=== PATIENT | female | born 1965 | race Caucasian/White ===

== ENCOUNTER 2017-09-11 07:37 | Outpatient (CLI) | payer BC ==
--- NOTE | 2017-09-11 09:10 | CT ---
CT OF ABDOMEN AND PELVIS PERFORMED WITH AND WITHOUT CONTRAST ENHANCEMENT: History: Hematuria, history of cervical cancer. FINDINGS: The lung bases are clear. There are diffuse fatty changes of the liver. The spleen is within normal limits of size. Pancreas an d gallbladder regions are unremarkable. Right and left adrenal glands and right and left kidneys are normal in size. There is no evidence of any renal cyst or mass. There is mild dilatation of both collecting systems and dilatation of both ur eters to the ureterovesical junction. I do not see any signs of any obstructing calculus. The uterus has been removed. There are no signs of pelvic lymphadenopathy or mass. IMPRESSION: 1. Mild bilateral hydronephrosis and hydroureter without evidence of any obstructing calculus or any definitive bladder mass. 2. Fatty changes of the liver. POS: NOA
[2017-09-11] MEDS ORDERED: Iopamidol 370 76% 100 ML VIAL ONE (09:59)
== END 2017-09-11 07:38 | disposition home or self-care (01) ==
LOC: CT 07:37
PROVIDERS: ATTEND Urology
DX: R31.0 Gross hematuria (principal); N13.30 Unspecified hydronephrosis; K76.0 Fatty (change of) liver, not elsewhere classified
CPT/HCPCS: 74178

== ENCOUNTER 2017-11-01 07:32 | Outpatient (CLI) | payer BC, OTHER ==
--- NOTE | 2017-11-01 15:31 | NM ---
LASIX RENOGRAM: DATE: 11/01/17. HISTORY: Hydronephrosis. History of cervical cancer, hematuria. RADIOPHARMACEUTICAL: 8 mCi Technetium 99m labeled MAG-3 IV. MEDICATIONS: 40 mg of Lasix intravenously administered 15 minutes prior to imaging. FINDINGS: There does appear to be symmetric uptake of activity within the kidneys bilaterally with time to peak activity delayed on the right compared to the left. The time of maximum activity within the left ki dney is 3.4 minutes and on the right is 6.4 minutes. T-1/2 on the left is 11.6 minutes and on the ri ght is 27.4 minutes. There is normal washout seen within the left kidney and while there is delayed washout in the right k idney, there is washout present. Split renal function is 59% on the left and 41% on the right. There is activity seen within each ure ter on provided images. There is greater activity present within the right renal collecting system c ompared to the left. IMPRESSION: 1. No evidence of a high-grade obstruction. There is delayed excretion of radiotracer from the righ t renal collecting system compared to the left with more normal washout curve seen involving the left kidney. 2. Split renal function is 59% on the left and 41% on the right. POS: [facility] [place]
[2017-11-01] MEDS ORDERED: Furosemide 40 MG/4 ML VIAL ONE (18:27)
== END 2017-11-01 07:33 | disposition home or self-care (01) ==
LOC: NM 07:32
PROVIDERS: ATTEND Urology
DX: N13.39 Other hydronephrosis (principal)
CPT/HCPCS: 78708; A4641; A9562; J1940

== ENCOUNTER 2018-11-04 14:26 | Outpatient (CLI) | payer BC ==
--- NOTE | 2018-11-04 15:40 | ULT ---
RENAL ULTRASOUND: DATE: 11/04/2018. PROVIDED CLINICAL HISTORY: Hematuria. FINDINGS: The right kidney measures about 11.5 x 6 x 5.7 cm and demonstrates prominent pelvocaliectasis. No ev idence for a mass. The left kidney measures about 11.8 x 7.7 x 7.2 cm and demonstrates no evidence for hydronephrosis or mass. Shadowing echogenic focus involving the mid left kidney may reflect artifact given that no ca lculus was seen on the CT examination performed previously. The urinary bladder is decompressed and not well evaluated. IMPRESSION: Right-sided pelvocaliectasis. POS: OFF
== END 2018-11-04 14:27 | disposition home or self-care (01) ==
LOC: BICULT 14:26
PROVIDERS: ATTEND Urology
DX: R31.0 Gross hematuria (principal); N28.89 Other specified disorders of kidney and ureter
CPT/HCPCS: 36415; 76770; 80048; 81001

== ENCOUNTER 2019-11-27 08:33 | Outpatient (CLI) | payer BC ==
--- NOTE | 2019-11-27 09:15 | ULT ---
Exam: Bilateral renal ultrasound HISTORY: Hydronephrosis COMPARISON: 11/04/2018 FINDINGS: Right kidney: Normal cortical echotexture. Persistent dilatation of the calyces and renal pelvis Right kidney measurements: 5.8 x 12.3 x 5.3 cm. Left kidney: Normal cortical echotexture. No hydronephrosis Left kidney measurements 5.9 x 12.3 x 6.2 cm. Urinary bladder: Prevoid volume 110 mL. Post void volume 4.3 mm. Normal mucosa. Left ureteral jet is identified. Right ureteral jet is not appreciated. IMPRESSION: 1. Moderate right-sided hydronephrosis which persists after voiding.
== END 2019-11-27 08:34 | disposition home or self-care (01) ==
LOC: BICULT 08:33
PROVIDERS: ATTEND Urology
DX: N13.39 Other hydronephrosis (principal)
CPT/HCPCS: 76770

== ENCOUNTER 2019-12-14 08:14 | Outpatient (CLI) | payer BC ==
[2019-12-14] MEDS ORDERED: Furosemide 40 MG/4 ML VIAL ONE (08:52)
--- NOTE | 2019-12-14 16:13 | NM ---
Radionucleotide renogram HISTORY: Hydronephrosis. COMPARISON: 11/01/2017. FINDINGS: Blood flow images show immediate bilateral and symmetric uptake. Delayed images show signif icant asymmetry, with delayed and persistent uptake of the left kidney and collecting structures. Split function: Left 62%: Right 38% Time to maximum: Left 3.4 minutes: Right 7.4 minutes T half max: left 10.0 minutes: Right 48.2 minutes Normalized GFR 233 mL/m. IMPRESSION : While total GFR is preserved, there is worsening function and delayed excretion of the right kidney c ompared to the left.
== END 2019-12-14 08:15 | disposition home or self-care (01) ==
LOC: NM 08:14
PROVIDERS: ATTEND Urology
DX: N13.39 Other hydronephrosis (principal); N28.89 Other specified disorders of kidney and ureter
CPT/HCPCS: 78708; A4641; A9562; J1940

== ENCOUNTER 2020-04-21 15:25 | Outpatient (CLI) | payer BC ==
--- NOTE | 2020-04-21 16:48 | ULT ---
BILATERAL RENAL ULTRASOUND COMPLETE: Date: 04/21/2020 HISTORY: Follow-up hydronephrosis. COMPARISON: 11/27/2019. FINDINGS: Right kidney measures 12.4 x 6.3 x 6.1 cm. Left kidney measures 11.9 x 5.5 x 6.0 cm. Moderate right-sided hydronephrosis persists. No significant change from prior exam. Pre-void bladder volume is 137 mL. Post-void bladder volume is 29 mL. IMPRESSION: Persistent moderate stable right-sided hydronephrosis from 11/27/2019. POS: OFF
== END 2020-04-21 15:26 | disposition home or self-care (01) ==
LOC: BICULT 15:25
PROVIDERS: ATTEND Urology
DX: N13.39 Other hydronephrosis (principal)
CPT/HCPCS: 76770

== ENCOUNTER 2020-08-26 09:36 | Outpatient (CLI) | payer BC ==
--- NOTE | 2020-08-26 10:50 | RAD ---
2 VIEWS RIGHT HIP: Date: 08/26/2020 COMPARISON: None. HISTORY: Bilateral hip pain. FINDINGS: Two views of the right hip show no evidence of acute fracture or dislocation. No degenerative changes are seen. Surgical clips are seen in the pelvis. IMPRESSION: No significant right hip abnormality. POS: EAA
--- NOTE | 2020-08-26 10:50 | RAD ---
2 VIEWS LEFT HIP: Date: 08/26/2020 HISTORY: Bilateral hip pain. FINDINGS: Two views of the left hip show no evidence of acute fracture or dislocation. No degenerative changes are seen. Surgical clips are seen in the pelvis. No focal soft tissue swelling is seen. IMPRESSION: No significant left hip abnormality. POS: EAA
[2020-08-26 16:23] LABS: ALT (SGPT) 14 U/L (8-55); AST (SGOT) 15 U/L (5-34); Albumin 4.2 g/dL (3.5-5.0); Alkaline Phosphatase 75 U/L (40-110); Anion Gap 14 mmol/L (10-20); BUN (Urea Nitrogen) 20 mg/dL (9.8-20.1); Bilirubin, Total 0.4 mg/dL (0.2-1.2); Calc. Creatinine Clearance 0 mL/min (70-130); Calcium 9.2 mg/dL (7.8-10.44); Carbon Dioxide 25 mmol/L (22-29); Chloride 108 mmol/L (98-107); Cholesterol 246 mg/dl (< 200 Desired); Globulin 2.7 g/dL (2.4-3.5); Glucose 92 mg/dL (70-105); HDL Cholesterol 49 mg/dL (>60 Neg Risk); LDL Cholesterol, Calculated 143 mg/dL; Potassium 4.3 mmol/L (3.5-5.1); Protein, Total 6.9 g/dL (6.0-8.3); Sodium 143 mmol/L (136-145); Triglycerides 268 mg/dL (Less than 150)
== END 2020-08-26 09:37 | disposition home or self-care (01) ==
LOC: SCSRAD 09:36
PROVIDERS: ATTEND Family Medicine
DX: M25.551 Pain in right hip (principal); M25.552 Pain in left hip; E78.5 Hyperlipidemia, unspecified
CPT/HCPCS: 36415; 80053; 80061

== ENCOUNTER 2021-03-01 15:23 | Outpatient (CLI) | payer BC ==
[2021-03-01 17:34] LABS: Hemoglobin 12.3 g/dL (12.0-15.5); Mean Corpuscular HGB CONC 31.6 g/dL (32.0-36.0); Mean Corpuscular Hemoglobin 27.8 pg (27.0-33.0); Mean Corpuscular Volume 87.8 fl (81.6-98.3); Mean Platelet Volume 9.7 fl (7.4-10.4); Platelet Count 325 10x3/uL (150-450); Red Blood Cell (RBC) Count 4.43 10x6/uL (3.90-5.03); White Blood Cell (WBC) Count 6.8 10x3/uL (3.5-10.5)
[2021-03-01 17:42] LABS: Anion Gap 16 mmol/L (10-20); BUN (Urea Nitrogen) 16 mg/dL (9.8-20.1); Calc. Creatinine Clearance 0 mL/min (70-130); Calcium 9.9 mg/dL (7.8-10.44); Carbon Dioxide 19 mmol/L (22-29); Chloride 108 mmol/L (98-107); Glucose 100 mg/dL (70-105); INR-International Normal Ratio 0.9; PTT 25.6 sec (22.0-33.0); Potassium 4.1 mmol/L (3.5-5.1); Prothrombin Time 10.1 sec (9.5-12.1); Sodium 139 mmol/L (136-145)
[2021-03-02 12:34] LABS: SARS-CoV-2 PCR by NAA Not Detected (NotDetected)
== END 2021-03-01 15:24 | disposition home or self-care (01) ==
LOC: LABBT 15:23
PROVIDERS: ATTEND Internal Medicine Cardiovascular Disease
DX: Z01.812 Encounter for preprocedural laboratory examination (principal); Z20.822 Contact with and (suspected) exposure to COVID-19
CPT/HCPCS: 80048; 85027; 85610; 85730; U0003; U0005

== ENCOUNTER → 2021-03-06 | Day surgery (SDC) | payer BC ==
[2021-03-03 12:57] VITALS: BMI 39.0
[~2021-03-06] MED LIST: Fentanyl 100 MCG/2 ML VIAL ONE; Heparin 10,000 UNITS/ 10 ML VIAL ONE; Heparin 25,000 units/D5W 0 ML ONE; Isoproterenol 0.2 MG/1 ML AMP ONE; Lidocaine 1% PF 5 ML VIAL ONE; Midazolam HCl 2 mg/2 ml Vial ONE; Ondansetron PF 4 MG/2 ML Vial ONE; Propofol 500 MG/50 ML VIAL ONE
== END ==
LOC: CCL 07:49
PROVIDERS: ATTEND Internal Medicine Cardiovascular Disease
PROC: 4A023FZ Measurement of Cardiac Rhythm, Percutaneous Approach (ICD-10-PCS; principal; 2021-03-06)
PROC: 5A2204Z Restoration of Cardiac Rhythm, Single (ICD-10-PCS; principal; 2021-03-06)
PROC: 02K83ZZ Map Conduction Mechanism, Percutaneous Approach (ICD-10-PCS; principal; 2021-03-06)
PROC: 4A0234Z Measurement of Cardiac Electrical Activity, Percutaneous Approach (ICD-10-PCS; principal; 2021-03-06)
DX: I47.1 Supraventricular tachycardia (principal); I48.91 Unspecified atrial fibrillation; I48.4 Atypical atrial flutter; I11.9 Hypertensive heart disease without heart failure; M19.90 Unspecified osteoarthritis, unspecified site; I08.1 Rheumatic disorders of both mitral and tricuspid valves; E66.01 Morbid (severe) obesity due to excess calories; Z68.39 Body mass index [BMI] 39.0-39.9, adult; Z79.899 Other long term (current) drug therapy; Z88.1 Allergy status to other antibiotic agents; Z88.2 Allergy status to sulfonamides
CPT/HCPCS: 71045; 76942; 92960; 93005; 93010; 93613; 93620; 93621; 93623; C1730; C1732; J1644; J2250; J2405; J2704; J3010

== ENCOUNTER 2021-08-30 17:50 | Outpatient (CLI) | payer BC | END 2021-08-30 17:51 | disposition home or self-care (01) | LOC: SCSRAD 17:50 | PROVIDERS: ATTEND Family Medicine | DX: R07.9 Chest pain, unspecified (principal) | CPT/HCPCS: 71046 ==

== ENCOUNTER 2022-03-05 07:41 | Outpatient (CLI) | payer BC | END 2022-03-05 07:42 | disposition home or self-care (01) | LOC: BICMAMMO 07:41 | PROVIDERS: ATTEND Family Medicine | DX: Z12.31 Encounter for screening mammogram for malignant neoplasm of breast (principal); Z80.3 Family history of malignant neoplasm of breast; Z85.41 Personal history of malignant neoplasm of cervix uteri | CPT/HCPCS: 77063; 77067 ==

== ENCOUNTER 2023-02-05 08:00 | Outpatient (CLI) | payer BC | END 2023-02-05 08:01 | disposition home or self-care (01) | LOC: PET 08:00 | PROVIDERS: ATTEND Internal Medicine | DX: R19.00 Intra-abdominal and pelvic swelling, mass and lump, unspecified site (principal); C80.1 Malignant (primary) neoplasm, unspecified; C78.6 Secondary malignant neoplasm of retroperitoneum and peritoneum | CPT/HCPCS: 78815; A9552 ==

== ENCOUNTER → 2023-03-06 | Day surgery (SDC) | payer BC ==
[~2023-03-06] MED LIST changes: -Fentanyl 100 MCG/2 ML VIAL ONE; -Heparin 10,000 UNITS/ 10 ML VIAL ONE; -Heparin 25,000 units/D5W 0 ML ONE; -Isoproterenol 0.2 MG/1 ML AMP ONE; -Lidocaine 1% PF 5 ML VIAL ONE; -Midazolam HCl 2 mg/2 ml Vial ONE; -Ondansetron PF 4 MG/2 ML Vial ONE; -Propofol 500 MG/50 ML VIAL ONE; +cefTRIAXone\\ROCEPHIN 1 GM in Sodium Chloride 0.9% 100 ML IVPB SCH
[2023-03-06 08:04] LABS: Hematocrit 41.4 % (36.0-47.0); Hemoglobin 13.3 g/dL (12.0-16.0); Mean Corpuscular HGB CONC 32.1 g/dL (32.0-36.0); Mean Corpuscular Hemoglobin 26.9 pg (27.0-31.0); Mean Corpuscular Volume 83.6 fl (78.0-98.0); Mean Platelet Volume 9.4 fL (7.4-10.4); Platelet Count 298 10x3/uL (130-400); RBC Distribution Width 14.8 % (11.5-14.5); Red Blood Cell (RBC) Count 4.95 mill/uL (4.20-5.40); White Blood Cell (WBC) Count 17.8 10x3/uL (4.8-10.8)
[2023-03-06 08:08] LABS: Delete Auto Diff?? YES; Manual Diff?? YES
[2023-03-06 08:25] LABS: PTT 29.9 sec (22.9-36.1); Prothrombin Time 13.4 sec (12.0-14.7)
[2023-03-06 08:35] LABS: Band 28 % (5-11); CellaVision Operator ID LAB.KB; Dohle Bodies SLIGHT; Eosinophils 5 % (0-10); Lymphocytes 4 % (21-51); Metamyelocyte 1 % (0-0); Monocytes 8 % (0-10); Neutrophil 48 % (42-75); Platelet Adequacy Comment Platelets Normal; Polychromasia SLIGHT = 2-3 cells HPF (0-2); Reactive Lymphocytes 7 % (0-10); Total Cell Count 103; Toxic Granulation SLIGHT
== END ==
LOC: SPEC 06:59
PROVIDERS: ATTEND Urology
DX: N13.30 Unspecified hydronephrosis (principal); C53.9 Malignant neoplasm of cervix uteri, unspecified
CPT/HCPCS: 50430; 50433; 85025; 85610; 85730; C1729; C1894; J0696; J3490

== ENCOUNTER 2023-05-08 06:52 | Day surgery (SDC) | payer BC ==
[2023-05-08 14:19] VITALS: BP 158/78; TEMP 98
== END 2023-05-08 08:45 | disposition home or self-care (01) ==
LOC: SPEC 06:52
PROVIDERS: ATTEND Urology
PROC: 0T25X0Z Change Drainage Device in Kidney, External Approach (ICD-10-PCS; principal; 2023-05-08)
DX: N13.1 Hydronephrosis with ureteral stricture, not elsewhere classified (principal); C53.9 Malignant neoplasm of cervix uteri, unspecified
CPT/HCPCS: 50435

== ENCOUNTER → 2023-06-19 | Day surgery (SDC) | payer BC ==
[~2023-06-19] MED LIST changes: +Iopamidol 300 61% 100 ML VIAL FS ONE; -cefTRIAXone\\ROCEPHIN 1 GM in Sodium Chloride 0.9% 100 ML IVPB SCH; +fentaNYL 50 mcg/mL 1 mL Vial ONE
== END ==
LOC: SPEC 07:04
PROVIDERS: ATTEND Urology
PROC: 0DP60UZ Removal of Feeding Device from Stomach, Open Approach (ICD-10-PCS; principal; 2023-06-19)
PROC: 0DH63UZ Insertion of Feeding Device into Stomach, Percutaneous Approach (ICD-10-PCS; principal; 2023-06-19)
DX: N13.39 Other hydronephrosis (principal)
CPT/HCPCS: 50435; J3010; Q9967

== ENCOUNTER → 2023-07-30 | Day surgery (SDC) | payer BC ==
[~2023-07-30] MED LIST changes: +Iopamidol 100 ML FS ONE; -Iopamidol 300 61% 100 ML VIAL FS ONE; +Lidocaine 1% PF 5 ML VIAL ONE; +Lidocaine 2% 6 ML (Jelly) SYR ONE; +Sodium Bicarbonate 0.5 MEQ/ML SDV 10 ML ONE; -fentaNYL 50 mcg/mL 1 mL Vial ONE
== END ==
LOC: SPEC 07:03
PROVIDERS: ATTEND Urology
PROC: 0T25X0Z Change Drainage Device in Kidney, External Approach (ICD-10-PCS; principal; 2023-07-30)
DX: N13.39 Other hydronephrosis (principal); Z88.1 Allergy status to other antibiotic agents; Z88.5 Allergy status to narcotic agent; Z88.2 Allergy status to sulfonamides
CPT/HCPCS: 50435; C1729; Q9967

== ENCOUNTER 2023-09-10 07:22 | Day surgery (SDC) | payer BC ==
[2023-09-10] MEDS ORDERED: Sodium Chloride 0.9% 500 ML ONE (07:28)
[2023-09-10] MEDS ORDERED: Iopamidol 30 ML ONE (07:28)
[2023-09-10] MEDS ORDERED: Sodium Bicarbonate 2.5 MEQ/5 ML SDV ONE (08:17)
[2023-09-10] MEDS ORDERED: Lidocaine 1% w/Epinephrine 1:100K 20 ML VIAL ONE (08:17)
[2023-09-10 11:34] VITALS: BP 121/82
== END 2023-09-10 09:30 | disposition home or self-care (01) ==
LOC: SPEC 07:22
PROVIDERS: ATTEND Urology
PROC: 0T25X0Z Change Drainage Device in Kidney, External Approach (ICD-10-PCS; principal; 2023-09-10)
DX: N13.39 Other hydronephrosis (principal); Z88.1 Allergy status to other antibiotic agents; Z88.5 Allergy status to narcotic agent; Z88.2 Allergy status to sulfonamides
CPT/HCPCS: 50435; J7030; Q9967

== ENCOUNTER 2023-12-05 07:00 | Day surgery (SDC) | payer BC ==
[2023-12-05] MEDS ORDERED: Sodium Chloride 0.9% 500 ML ONE (07:14)
[2023-12-05] MEDS ORDERED: Iopamidol 30 ML ONE (07:14)
[2023-12-05] MEDS ORDERED: Lidocaine 1% PF 5 ML VIAL ONE ×2 (07:14→07:35)
[2023-12-05] MEDS ORDERED: Sodium Bicarbonate 2.5 MEQ/5 ML SDV ONE ×2 (07:14→07:36)
[2023-12-05 07:29] VITALS: BP 144/83; TEMP 97.7
== END 2023-12-05 08:40 | disposition home or self-care (01) ==
LOC: SPEC 07:00
PROVIDERS: ATTEND Urology
PROC: 0T25X0Z Change Drainage Device in Kidney, External Approach (ICD-10-PCS; principal; 2023-12-05)
DX: N30.20 Other chronic cystitis without hematuria (principal); N13.39 Other hydronephrosis; Z88.2 Allergy status to sulfonamides; Z88.8 Allergy status to other drugs, medicaments and biological substances; Z88.5 Allergy status to narcotic agent
CPT/HCPCS: 50435; 75984; C1729; C1751; C1769; J7030; Q9967

== ENCOUNTER → 2024-01-24 | Day surgery (SDC) | payer BC ==
[2024-01-24 13:32] VITALS: TEMP 96.9
== END ==
LOC: SPEC 06:51
PROVIDERS: ATTEND Urology
PROC: 0T25X0Z Change Drainage Device in Kidney, External Approach (ICD-10-PCS; principal; 2024-01-24)
DX: N13.39 Other hydronephrosis (principal); Z88.1 Allergy status to other antibiotic agents; Z88.5 Allergy status to narcotic agent; Z88.2 Allergy status to sulfonamides
CPT/HCPCS: 50435; 75984; 87071; 87077; 87086; 87186; C1729; C1769; J7030; Q9967

== ENCOUNTER 2024-04-17 07:01 | Outpatient (CLI) | payer BC ==
[2024-04-17] MEDS ORDERED: Sodium Chloride 0.9% 500 ML ONE (07:40)
[2024-04-17] MEDS ORDERED: Iopamidol 30 ML ONE (07:40)
[2024-04-17] MEDS ORDERED: Lidocaine 1% PF 5 ML VIAL ONE (07:40)
[2024-04-17] MEDS ORDERED: Sodium Bicarbonate 0.5 MEQ/ML SDV 10 ML ONE (07:40)
== END 2024-04-17 08:45 | disposition home or self-care (01) ==
LOC: SPEC 07:01
PROVIDERS: ATTEND Urology
DX: N13.39 Other hydronephrosis (principal); Z93.6 Other artificial openings of urinary tract status
CPT/HCPCS: 50435; 75984; C1729; C1769; J7030; Q9967

== ENCOUNTER 2024-06-01 06:58 | Day surgery (SDC) | payer BC ==
[2024-06-01] MEDS ORDERED: Iopamidol 30 ML ONE (07:21)
[2024-06-01] MEDS ORDERED: Lidocaine 1% w/Epinephrine 1:100K 20 ML VIAL ONE (07:21)
[2024-06-01] MEDS ORDERED: Sodium Chloride 0.9% 500 ML ONE (07:21)
[2024-06-01] MEDS ORDERED: Sodium Bicarbonate 2.5 MEQ/5 ML SDV ONE (07:21)
[2024-06-01 09:27] VITALS: BP 132/87; TEMP 98.6
== END 2024-06-01 08:30 | disposition home or self-care (01) ==
LOC: SPEC 06:58
PROVIDERS: ATTEND Urology
PROC: 0T25X0Z Change Drainage Device in Kidney, External Approach (ICD-10-PCS; principal; 2024-06-01)
DX: N13.39 Other hydronephrosis (principal)
CPT/HCPCS: 50435; 75984; C1729; C1769; J7030; Q9967

== ENCOUNTER 2024-06-29 12:22 | Outpatient (CLI) | payer BC | END 2024-06-29 12:23 | disposition home or self-care (01) | LOC: SPEC 12:22 → SDC 12:22 | PROVIDERS: ATTEND Urology | DX: N13.39 Other hydronephrosis (principal) ==

== ENCOUNTER 2024-07-20 07:20 | Day surgery (SDC) | payer BC ==
[2024-07-20] MEDS ORDERED: Lidocaine 1% w/Epinephrine 1:100K 20 ML VIAL ONE (07:22)
[2024-07-20] MEDS ORDERED: Sodium Chloride 0.9% 500 ML ONE (07:23)
[2024-07-20] MEDS ORDERED: Sodium Bicarbonate 2.5 MEQ/5 ML SDV ONE (07:23)
[2024-07-20] MEDS ORDERED: Iopamidol 30 ML ONE (07:23)
== END 2024-07-20 08:45 | disposition home or self-care (01) ==
LOC: SPEC 07:20
PROVIDERS: ATTEND Urology
PROC: 0T25X0Z Change Drainage Device in Kidney, External Approach (ICD-10-PCS; principal; 2024-07-20)
DX: N13.39 Other hydronephrosis (principal); Z88.2 Allergy status to sulfonamides; Z88.1 Allergy status to other antibiotic agents; Z88.5 Allergy status to narcotic agent
CPT/HCPCS: 50435; 75984; C1729; C1769; J7030; Q9967

== ENCOUNTER 2025-02-24 07:30 | Day surgery (SDC) | payer BC | END 2025-02-24 08:58 | disposition home or self-care (01) | LOC: SPEC 07:30 | PROVIDERS: ATTEND Urology | PROC: 0T25X0Z Change Drainage Device in Kidney, External Approach (ICD-10-PCS; principal; 2025-02-24) | DX: N30.40 Irradiation cystitis without hematuria (principal); Z88.1 Allergy status to other antibiotic agents; Z88.2 Allergy status to sulfonamides; Z88.5 Allergy status to narcotic agent | CPT/HCPCS: 50435; 75984; C1729; C1769; J7030; Q9967 ==

== ENCOUNTER 2025-04-26 07:47 | Day surgery (SDC) | payer BC ==
[2025-04-26 09:23] VITALS: BP 144/89
== END 2025-04-26 09:00 ==
LOC: SPEC 07:47
PROVIDERS: ATTEND Urology
PROC: 0T25X0Z Change Drainage Device in Kidney, External Approach (ICD-10-PCS; principal; 2025-04-26)
DX: N13.39 Other hydronephrosis (principal); C56.9 Malignant neoplasm of unspecified ovary; Z90.710 Acquired absence of both cervix and uterus
CPT/HCPCS: 50435; 75984; C1729; C1769; J7030; Q9967

== ENCOUNTER 2025-05-04 07:29 | Day surgery (SDC) | payer BC | END 2025-05-04 09:15 | disposition home or self-care (01) | LOC: SPEC 07:29 | PROVIDERS: ATTEND Urology | DX: N13.39 Other hydronephrosis (principal) | CPT/HCPCS: 74425; 87077; 87086; Q9967 ==

== ENCOUNTER 2025-06-18 14:00 | Outpatient (CLI) | payer BC ==
[2025-06-18 14:39] LABS: Estimated GFR - POC 105.0
== END 2025-06-18 14:01 | disposition home or self-care (01) ==
LOC: SCSMRI 14:00
PROVIDERS: ATTEND Nurse Practitioner Family
DX: R51.9 Headache, unspecified (principal); D50.0 Iron deficiency anemia secondary to blood loss (chronic); C56.9 Malignant neoplasm of unspecified ovary; I26.99 Other pulmonary embolism without acute cor pulmonale
CPT/HCPCS: 36415; 70553; 76376; 82565